=== PATIENT | female | born 2005 | race African-American/Black ===

== ENCOUNTER → 2024-10-04 | Emergency (ER) | payer MEDICAID ==
[~2024-10-04] VITALS: Ht 157.5 cm; Wt 59.3 kg
[2024-10-04 22:06] VITALS: BP 137/93; PULSE 109; RESP 18; TEMP 98.8; O2SAT 100
== END | disposition left against medical advice (07) ==
LOC: ER 22:00
DX: H92.01 Otalgia, right ear (principal); Z53.21 Procedure and treatment not carried out due to patient leaving prior to being seen by health care provider

== ENCOUNTER → 2024-10-05 | Emergency (ER) | payer MEDICAID ==
[~2024-10-05] VITALS: Ht 157.5 cm; Wt 58.0 kg
[2024-10-05 20:51] VITALS: BP 129/68; PULSE 83; RESP 15; TEMP 98.6; O2SAT 97
== END | disposition left against medical advice (07) ==
LOC: ER 20:49
DX: H92.01 Otalgia, right ear (principal); Z53.21 Procedure and treatment not carried out due to patient leaving prior to being seen by health care provider